=== PATIENT | male | born 1995 | race Caucasian/White ===

== ENCOUNTER 2018-07-28 19:38 | Emergency (ER) | payer BC ==
[~2018-07-28] VITALS: Ht 177.8 cm; Wt 95.3 kg
[2018-07-28 20:51] VITALS: BP 153/92
[2018-07-28] MEDS ORDERED: AUGMENTIN 875-1 EACH PO (21:19)
== END 2018-07-28 21:51 | disposition home or self-care (01) ==
LOC: ER 19:38 → EDBD 19:38 → ER 21:51
DX: S60.222A Contusion of left hand, initial encounter (principal); S60.552A Superficial foreign body of left hand, initial encounter; Z23 Encounter for immunization; W45.8XXA Other foreign body or object entering through skin, initial encounter; Y92.89 Other specified places as the place of occurrence of the external cause; Y93.89 Activity, other specified; Y99.8 Other external cause status